=== PATIENT | female | born 1950 | race Caucasian/White ===

== ENCOUNTER → 2016-12-27 | Outpatient (CLI) | payer MEDICARE, OTHER | LOC: RAD 16:29 | DX: R06.00 Dyspnea, unspecified (principal) | CPT/HCPCS: 71020 ==

== ENCOUNTER → 2017-01-30 | Outpatient (CLI) | payer MEDICARE, OTHER | LOC: CT 10:49 | DX: Z87.891 Personal history of nicotine dependence (principal); J43.9 Emphysema, unspecified; J98.11 Atelectasis | CPT/HCPCS: G0297 ==

== ENCOUNTER → 2020-09-24 | Outpatient (CLI) | payer MEDICARE, OTHER ==
[~2020-09-24] MED LIST: ALBUTEROL2.5 MG/3 M INH; ALL DAY ALLERGY10 M3 PO; AMLODIPINE BESYL5 MG PO; COZAAR100 MG PO; DESYREL 50 MG T50 MG PO; DILTIAZEM ER360 M1 PO; ECOTRIN81 MG PO; FLEXERIL 10 MG10 MG PO; FLOVENT DISKUS50 MCG INH; GLUCOPHAGE500 MG PO; HYDROCHLOROTHIA25 MG PO; IMDUR ER TAB 3030 MG PO; LEXAPRO10 MG PO; LO-DOSE ASPIRIN81 MG PO; MIRALAX17 GM PO; OMEPRAZOLE40 MG PO; PANTOPRAZOLE SO40 MG PO; PRAVASTATIN SOD10 MG PO; PRAVASTATIN SOD40 MG PO; PREDNISONE20 MG PO; PROTONIX40 MG PO; SYNTHROID88 MCG PO; TOPROL XL25 MG PO; ULTRAM50 MG PO; VIBRAMYCIN100 MG PO; VITAMIN D34000 UNIT PO; VITAMIN D35000 UNI1 PO; XANAX 0.25 MG0.25 MG PO; ZANAFLEX4 MG PO; ZANTAC150 MG PO
[2020-09-25 08:14] LABS: RHEUMATOID ARTHRITIS FACTOR 47.2 IU/mL (0.0-13.9)
[2020-09-25 10:14] LABS: HCV AB <0.1 (0.0-0.9)
[2020-09-25 11:14] LABS: HBSAG SCREEN Negative (Negative); HEP B CORE AB, TOT Negative (Negative)
[2020-09-26 01:09] LABS: CCP ANTIBODIES IGG/IGA 85 units (0-19)
== END ==
LOC: LAB 10:14
PROVIDERS: Internal Medicine
DX: D89.89 Other specified disorders involving the immune mechanism, not elsewhere classified (principal); M25.50 Pain in unspecified joint; Z11.59 Encounter for screening for other viral diseases; R76.8 Other specified abnormal immunological findings in serum; Z79.899 Other long term (current) drug therapy
CPT/HCPCS: 36415; 83520; 86200; 86431; 86704; 86803; 87340

== ENCOUNTER → 2020-09-29 | Outpatient (CLI) | payer MEDICARE, OTHER | LOC: KOH-I 15:07 | DX: Z87.891 Personal history of nicotine dependence (principal) | CPT/HCPCS: 71271 ==

== ENCOUNTER → 2020-11-11 | Outpatient (CLI) | payer MEDICARE, OTHER | LOC: KOH-I 14:31 | DX: M54.5 Low back pain (principal); G89.29 Other chronic pain; M25.551 Pain in right hip; M25.552 Pain in left hip; M51.37 Other intervertebral disc degeneration, lumbosacral region; M41.9 Scoliosis, unspecified; M16.0 Bilateral primary osteoarthritis of hip; M25.752 Osteophyte, left hip; M25.751 Osteophyte, right hip | CPT/HCPCS: 72100; 73522 ==

== ENCOUNTER → 2021-03-08 | Outpatient (CLI) | payer MEDICARE, OTHER | LOC: KOH-I 14:25 | DX: M51.36 Other intervertebral disc degeneration, lumbar region (principal); M51.26 Other intervertebral disc displacement, lumbar region; R29.2 Abnormal reflex; M48.061 Spinal stenosis, lumbar region without neurogenic claudication; M43.16 Spondylolisthesis, lumbar region | CPT/HCPCS: 72148 ==

== ENCOUNTER 2021-04-12 12:27 | Emergency (ER) | payer MEDICARE, OTHER ==
[~2021-04-12] VITALS: Ht 157.5 cm; Wt 62.1 kg
== END 2021-04-12 15:50 | disposition home or self-care (01) ==
LOC: ER1 12:27
DX: Z23 Encounter for immunization (principal); U07.1 COVID-19; J44.9 Chronic obstructive pulmonary disease, unspecified; I11.0 Hypertensive heart disease with heart failure; I50.9 Heart failure, unspecified; E11.9 Type 2 diabetes mellitus without complications; Z95.1 Presence of aortocoronary bypass graft
CPT/HCPCS: 99283; M0243

== ENCOUNTER → 2021-04-30 | Outpatient (CLI) | payer MEDICARE, OTHER | LOC: EXRD 08:41 | DX: R07.9 Chest pain, unspecified (principal); R06.02 Shortness of breath; J43.9 Emphysema, unspecified; Z95.1 Presence of aortocoronary bypass graft | CPT/HCPCS: 71046 ==

== ENCOUNTER → 2021-05-13 | Outpatient (CLI) | payer MEDICARE, OTHER | LOC: HEART 5 09:14 | DX: I25.10 Atherosclerotic heart disease of native coronary artery without angina pectoris (principal); R07.9 Chest pain, unspecified; J44.9 Chronic obstructive pulmonary disease, unspecified; R06.02 Shortness of breath; I08.8 Other rheumatic multiple valve diseases; R94.39 Abnormal result of other cardiovascular function study; R94.2 Abnormal results of pulmonary function studies; Z87.891 Personal history of nicotine dependence | CPT/HCPCS: 93306; 94060; 94729 ==

== ENCOUNTER → 2021-05-18 | Outpatient (CLI) | payer MEDICARE, OTHER | LOC: ECHO 09:00 → NM 09:00 | DX: I25.10 Atherosclerotic heart disease of native coronary artery without angina pectoris (principal); R07.9 Chest pain, unspecified; R06.02 Shortness of breath; R94.39 Abnormal result of other cardiovascular function study | CPT/HCPCS: 78452; 93017; A9502; J2785 ==

== ENCOUNTER → 2021-06-23 | Outpatient (CLI) | payer MEDICARE, OTHER | LOC: EXRD 11:37 | DX: R31.9 Hematuria, unspecified (principal) | CPT/HCPCS: 74018 ==

== ENCOUNTER → 2021-09-29 | Outpatient (CLI) | payer MEDICARE, OTHER | LOC: KOH-I 08-18 11:00 | DX: Z87.891 Personal history of nicotine dependence (principal); I25.10 Atherosclerotic heart disease of native coronary artery without angina pectoris; I70.0 Atherosclerosis of aorta; I31.1 Chronic constrictive pericarditis | CPT/HCPCS: 71271 ==

== ENCOUNTER → 2021-11-24 | Outpatient (CLI) | payer MEDICARE, OTHER | LOC: MAMO 13:55 | DX: Z12.31 Encounter for screening mammogram for malignant neoplasm of breast (principal) | CPT/HCPCS: 77063; 77067 ==

== ENCOUNTER → 2021-12-09 | Outpatient (CLI) | payer MEDICARE, OTHER | LOC: RAD 11:52 | DX: M54.2 Cervicalgia (principal); M25.512 Pain in left shoulder; M25.511 Pain in right shoulder; M25.619 Stiffness of unspecified shoulder, not elsewhere classified; M25.521 Pain in right elbow; M25.522 Pain in left elbow; M25.562 Pain in left knee; M25.561 Pain in right knee; G89.29 Other chronic pain; M54.16 Radiculopathy, lumbar region; M17.0 Bilateral primary osteoarthritis of knee; M25.462 Effusion, left knee; M19.021 Primary osteoarthritis, right elbow; M19.022 Primary osteoarthritis, left elbow; M47.812 Spondylosis without myelopathy or radiculopathy, cervical region; M19.012 Primary osteoarthritis, left shoulder; M19.011 Primary osteoarthritis, right shoulder; Z95.1 Presence of aortocoronary bypass graft | CPT/HCPCS: 72040; 72110; 73030; 73080; 73562 ==

== ENCOUNTER → 2022-03-04 | Outpatient (CLI) | payer MEDICARE, OTHER ==
[2022-03-04 13:32] LABS: HEMOGLOBIN 12.9 gm/dl (12.3-15.3); RED BLOOD COUNT 4.21 M/UL (4.00-5.10); WHITE BLOOD COUNT 5.7 K/UL (4.5-11.0)
[2022-03-04 13:58] LABS: BUN/CREATININE RATIO 13 (0-10)
== END ==
LOC: LAB 12:07
PROVIDERS: Nurse Practitioner Family
DX: K57.92 Diverticulitis of intestine, part unspecified, without perforation or abscess without bleeding (principal); R11.0 Nausea; R10.9 Unspecified abdominal pain; M25.50 Pain in unspecified joint
CPT/HCPCS: 36415; 80053; 81001; 82150; 83690; 85025; 85652; 87086

== ENCOUNTER → 2022-03-29 | Outpatient (CLI) | payer MEDICARE, OTHER | LOC: KOH-I 09:44 | DX: M47.26 Other spondylosis with radiculopathy, lumbar region (principal) | CPT/HCPCS: 72110 ==

== ENCOUNTER → 2022-05-03 | Outpatient (CLI) | payer MEDICARE, OTHER | LOC: KOH-I 10:13 | DX: M19.011 Primary osteoarthritis, right shoulder (principal) | CPT/HCPCS: 73030 ==